=== PATIENT | male | born 1945 | race Caucasian/White ===

== ENCOUNTER 2016-11-02 07:20 | Day surgery (SDC) | payer OTHER ==
[~2016-11-02 07:20] MED LIST: LACTATED RINGERS 1,000 ML IV SCH; LIDOCAINE 2% (PRES FREE) 5 ML VIAL ONE; PROPOFOL 40 ML IV ONE
[2016-11-02] MEDS ORDERED: IV START KIT ONE (07:31)
[2016-11-02 12:42] LABS: HELICOBACTER PYLORII DETECTION NEGATIVE (NEGATIVE)
--- NOTE | 2016-11-06 13:15 | SURGPATH ---
[facility] [address] [place] [id number] Patient Name: PEBBLES LAM MR#: [id number] : 1945 Gender: M Specimen #: [id number] Collected: 11/02/2016 Received: 11/03/2016 Reported: 11/06/2016 Submitting Phys: VERÓNICA KATZ Copy To Phys: [facility] Clinical History / Pre-Operative Diagnosis: DYSPHAGIA; RULE OUT GASTRITIS AND ESOPHAGITIS Specimen Source / Surgical Procedure Performed: #1-ANTRAL BIOPSY; #2-ESOPHAGEAL BIOPSY Interpretation: 1. ANTRUM, BIOPSY: - NO PATHOLOGIC ABNORMALITY 2. ESOPHAGUS, BIOPSY: - NO PATHOLOGIC ABNORMALITY Electronically Signed Out James Oakes M.D. Gross Description: #1 The specimen is received in a formalin filled container labeled with the patient's name and "antral biopsy". Two pale-holloway biopsies are 0.1 and 0.4 cm. Totally embedded in cassette #1. #2 The specimen is received in a formalin filled container labeled with the patient's name and "esophageal biopsies". Three ott biopsies are 0.1, 0.3 and 0.5 cm. Totally embedded in cassette #2. [place] Valverde Microscopic Description: 1. Sections show normal gastric antrum. 2. Sections show normal squamous esophageal mucosa. 1: 40813 2: 73883 R13.10
== END 2016-11-02 09:07 | disposition home or self-care (01) ==
LOC: SDC 07:20
PROVIDERS: ATTEND Internal Medicine Gastroenterology
PROC: 0DB48ZX Excision of Esophagogastric Junction, Via Natural or Artificial Opening Endoscopic, Diagnostic (ICD-10-PCS; principal; 2016-11-02)
PROC: 0D748ZZ Dilation of Esophagogastric Junction, Via Natural or Artificial Opening Endoscopic (ICD-10-PCS; 2016-11-02)
DX: K29.70 Gastritis, unspecified, without bleeding (principal); K22.2 Esophageal obstruction; R13.10 Dysphagia, unspecified; K29.80 Duodenitis without bleeding; K20.9 Esophagitis, unspecified; I10 Essential (primary) hypertension; I25.10 Atherosclerotic heart disease of native coronary artery without angina pectoris; E78.5 Hyperlipidemia, unspecified; M35.3 Polymyalgia rheumatica; Z79.899 Other long term (current) drug therapy